=== PATIENT | female | born 1970 | race Caucasian/White ===

== ENCOUNTER → 2018-12-27 | Outpatient (CLI) | payer OTHER ==
--- NOTE | 2018-12-27 17:14 | MRI ---
EXAM DESCRIPTION: Brain w/o Contrast: MRI. CLINICAL HISTORY: CLASSIC MIGRAINE COMPARISON: None. TECHNIQUE: Multiplanar, high-field MRI unit, multiple diffusion sequences, multiple conventional sequences without contrast. FINDINGS: Focal hyperintense FLAIR and T2-weighted signal in the subcortical white matter of the centrum semiovale of the right frontal lobe. This could also represent volume averaging abnormal cortical swan matter on the adjacent scan superior. Axial FLAIR sequence 501, image 20. Also seen on the axial T2*gradient sequence and the axial T2 fat saturation diffusion image. No diffusion restriction. No hemorrhage, no cerebral edema, no mass-effect. Normal signal in the bilateral basal ganglia. Normal signal in the brainstem and cerebellar hemispheres. No hemorrhage, no cerebral edema, no mass-effect. Concordance of the diffusion and non-diffusion sequences with no diffusion restriction. Cortical sulci, ventricles, and other CSF spaces, and the subdural spaces are normally configured. No effacement or displacement. No midline shift. No extra-axial hemorrhage. Normal flow signal void in the major vessels of the [place], and the venous sinuses. IACs are symmetric bilaterally. Normal signal in the bilateral mastoid air cells. No mass effect in the bilateral cerebellopontine angles. Pituitary gland occupies only the base of the sella, which is predominantly CSF containing. Base of the cerebellar tonsils is at the level of the foramen magnum. Minimal mucoperiosteal thickening in the paranasal sinuses with no air-fluid levels.. The bony calvarium is intact. IMPRESSION: 1. Focal lesion versus artifact vertex of the right frontal lobe subcortical white matter or volume averaging of cortical swan matter. No hemorrhage, no mass effect, no cerebral edema, and no diffusion restriction. If abnormal, consider sequela of migraine headaches, focal vasculitis, early cerebral microvascular disease. No other significant intra-axial findings in the cerebral hemispheres or posterior fossa. 2. Partially empty sella containing mostly CSF. No pituitary mass effect. Electronically signed by: Mark Anthony Eagle MD 12/27/2018 5:11 PM CDT
== END ==
LOC: MRI 09:23
PROVIDERS: ATTEND Family Medicine
DX: G43.109 Migraine with aura, not intractable, without status migrainosus (principal); E23.6 Other disorders of pituitary gland

== ENCOUNTER → 2019-07-31 | Outpatient (CLI) | payer OTHER ==
--- NOTE | 2019-08-01 19:59 | MAM ---
EXAM DESCRIPTION: 3D Screening BILATERAL : Digital Mammography. CLINICAL HISTORY: 48 years Female ANNUAL SCREENING . No complaints. No personal or family history of breast cancer. Menarche age 12. Childbirth. Hysterectomy 15+ years ago. Currently on HRT.. Lifetime risk of developing breast cancer (Tyrer-Cuzick model)(%): 9.2. COMPARISON: Baseline study at this facility. No prior reports available. TECHNIQUE: Bilateral CC and MLO projection full-field images, digital tomosynthesis mammographic technique. Bilateral digital 2-D full-field MLO images. CAD not available for tomosynthesis or 2-D images. FINDINGS: The breast parenchymal density pattern is: Scattered areas of fibroglandular density. No skin thickening or nipple retraction. Clinical asymmetry anterior upper outer quadrant right breast 2 cm from the nipple at the 10:30-11:00 position. No definite microcalcifications. Retroareolar focal asymmetry left breast. IMPRESSION: BI-RADS CATEGORY: 0 - INCOMPLETE- Need additional imaging evaluation. FOLLOW-UP: Recall for additional imaging: Full-field LM tomosynthesis and 2-D images of the breast.. Bilateral directed breast ultrasound. Written communication concerning the IMPRESSION and Follow-up, will be mailed to the patient and referring health care provider. Electronically signed by: Mark Anthony Eagle MD 08/01/2019 7:57 PM [employer]
== END ==
LOC: MAMMO 07:26
PROVIDERS: ATTEND Family Medicine
DX: Z12.31 Encounter for screening mammogram for malignant neoplasm of breast (principal)

== ENCOUNTER → 2019-08-28 | Outpatient (CLI) | payer OTHER ==
--- NOTE | 2019-08-28 10:19 | MAM ---
EXAM DESCRIPTION: 3D Diagnostic, Bilateral (accession [id number]), Breast,Bilateral (accession [id number]): Ultrasound CLINICAL HISTORY: 48 yearsFemaleABNORMAL MAMMOGRAM focal asymmetry upper outer quadrant right breast and retroareolar left breast. Lifetime risk of developing breast cancer (Tyrer-Cuzick model)(%): 9.2. COMPARISON: Bilateral screening digital breast tomosynthesis 31 July 2019. TECHNIQUE: Bilateral LM projection full-field images, digital tomosynthesis technique. Bilateral 2-D digital full-field images. LM projection. CAD not available. . Transcutaneous scanning of the bilateral breasts utilizing swan-scale and Doppler modes. Scanning performed by the chemical dependency professional ; observation by Dr. Eagle. FINDINGS: The breast parenchymal density pattern is: Scattered areas of fibroglandular density. No skin thickening or nipple retraction asymmetry again noted in the retroareolar left breast. No focal asymmetry seen at the site of prior abnormality on the screening study. Ultrasound: Retroareolar left breast. Heterogeneous fatty and fibroglandular tissues. 2.6 mm cyst and 2.0 mm cysts. No dominant solid mass. No parenchymal edema or large calcifications. Scanning of the right breast upper outer quadrant 10:00-11:00, 3 cm from the nipple. Mostly fibroglandular elements with minimal fatty tissues. Circumscribed hypoechoic object measuring 2.7 x 1.7 mm, with central echogenicity, consistent with a lymph node. Not vascular. IMPRESSION: Benign exam. BIRAD CATEGORY: 2 BENIGN FINDINGS. RECOMMENDATIONS: FOLLOW UP: Return to routine digital bilateral mammographic screening, one year interval from July 2019. Written communication explaining the IMPRESSION and follow-up, will be mailed to the patient and referring health care provider. The FINDINGS and the FOLLOW-UP plan were reviewed in person with the patient after the examination. According to the [employer], yearly mammograms are recommended starting at age 40 and continuing as long as a woman is in good health. Any breast change noted on a breast self-exam should be reported promptly to the patient's healthcare provider. Breast MRI is recommended for women with an approximately 20-25% or greater lifetime risk of breast cancer, including women with a strong family history of breast or ovarian cancer and women who have been treated for Hodgkin's disease. A negative mammographic report should not delay tissue diagnosis in patients with significant clinical history or physical findings. Extremely dense breast tissue limits the sensitivity of digital mammography. Electronically signed by: Mark Anthony Eagle MD 08/28/2019 10:17 AM [facility]
== END ==
LOC: MAMMO 08:11
PROVIDERS: ATTEND Family Medicine
DX: R92.8 Other abnormal and inconclusive findings on diagnostic imaging of breast (principal)
CPT/HCPCS: 76641; 77066; G0279